=== PATIENT | female | born 1975 | race Caucasian/White ===

== ENCOUNTER 2018-08-08 10:46 | Emergency (ER) | payer SELFPAY ==
[~2018-08-08] VITALS: Ht 167.6 cm; Wt 73.0 kg
[2018-08-08 11:21] LABS: BASOPHILS % 0.9 % (0.0-2.0); EOSINOPHILS % 1.2 % (0.0-5.0); HEMATOCRIT. 33.9 % (36.0-48.0); HEMOGLOBIN. 11.1 g/dL (12.0-16.0); LYMPHOCYTES % 24.7 % (20.0-50.0); MEAN CORPUSCULAR HEMOGLOBIN 26.2 pg (28.0-32.0); MEAN CORPUSCULAR VOLUME 79.9 fL (81.0-99.0); MEAN PLATELET VOLUME 7.7 fl (7.4-10.4); MONOCYTES % 7.4 % (2.0-8.0); NEUTROPHILS % 65.8 % (40.0-76.0); PLATELET 385 x1000/uL (130-400); RED BLOOD CELL COUNT 4.25 mill/uL (4.2-5.4); RED CELL DISTRIBUTION WIDTH 15.5 % (11.6-14.6)
[2018-08-08 11:29] LABS: CHLORIDE 105 mEq/L (98-107)
[2018-08-08] MEDS ORDERED: SODIUM CHLORIDE 0.9% 1,000 ML IV ONE (11:30)
[2018-08-08 11:32] LABS: ETHANOL BLOOD < 10 mg/dL
[2018-08-08 11:36] LABS: CREATINE KINASE 244 IU/L (26-192)
[2018-08-08 12:09] LABS: CLARITY URINE CLEAR (CLEAR); COLOR URINE DARK YELLOW (YELLOW); KETONES URINE 1+ (NEGATIVE); LEUKOCYTE ESTERASE URINE NEGATIVE (NEGATIVE); NITRITE URINE NEGATIVE (NEGATIVE); OCCULT BLOOD URINE NEGATIVE (NEGATIVE); PH URINE 5.5 (4.5-8.0); PROTEIN URINE 1+ (NEGATIVE); SPECIFIC GRAVITY URINE 1.037 (1.005-1.030)
[2018-08-08 12:27] LABS: *BARBITURATES SCREEN URINE NEGATIVE (NEGATIVE); *BENZODIAZEPINES SCREEN URINE NEGATIVE (NEGATIVE); METHADONE URINE SCREEN NEGATIVE (NEGATIVE); OPIATES URINE SCREEN NEGATIVE (NEGATIVE)
[2018-08-08 12:28] LABS: CANNABINOID URINE SCREEN NEGATIVE (NEGATIVE); PHENCYCLIDINE URINE SCREEN NEGATIVE (NEGATIVE)
[2018-08-08 12:30] LABS: *AMPHETAMINES SCREEN URINE PRESUMTIVE POSITIVE (NEGATIVE); *COCAINE SCREEN URINE PRESUMTIVE POSITIVE (NEGATIVE)
[2018-08-08] MEDS ORDERED: HALOPERIDOL LACTATE 5MG/ML VIAL IM ONE ×2 (18:00→20:15)
[2018-08-08] MEDS ORDERED: LORAZEPAM 2MG/ML CPJ IM STA (22:44)
[2018-08-08] MEDS ORDERED: DIPHENHYDRAMINE 50MG/ML VIAL ONE (23:46)
[2018-08-08] MEDS: DIPHENHYDRAMINE 50MG/ML VIAL IM PRN (23:49)
[2018-08-09] MEDS ORDERED: HALOPERIDOL LACTATE 5MG/ML VIAL IM ONE (05:00)
[2018-08-09] MEDS ORDERED: DIPHENHYDRAMINE 50MG/ML VIAL IM STA (11:21)
[2018-08-09] MEDS ORDERED: OLANZAPINE 10 MG/VIAL IM ONE (11:45)
[2018-08-09] MEDS ORDERED: LORAZEPAM 2MG/ML CPJ IM STA (11:53)
[2018-08-10] MEDS ORDERED: LORAZEPAM 2MG/ML CPJ IM ONE (18:30)
[2018-08-11] MEDS: DIPHENHYDRAMINE 50MG/ML VIAL IM PRN (12:06)
[2018-08-11 18:14] VITALS: BP 125/89
== END 2018-08-11 18:15 ==
LOC: ER 10:46
DX: G93.40 Encephalopathy, unspecified (principal); R41.82 Altered mental status, unspecified; F14.10 Cocaine abuse, uncomplicated; F15.10 Other stimulant abuse, uncomplicated
CPT/HCPCS: 36415; 70450; 80053; 80305; 80320; 81003; 81025; 82550; 82962; 84484; 85025; 93005; 96360; 96361; 96372; 99285; J1200; J1630; J2060; J3490; J7030; Z7610; 99284; G0480